=== PATIENT | female | born 1970 | race Caucasian/White ===

== ENCOUNTER → 2017-08-06 | Outpatient (CLI) | payer BC | END | disposition home or self-care (01) | LOC: CDC 15:07 | DX: Z01.810 Encounter for preprocedural cardiovascular examination (principal) | CPT/HCPCS: 93000 ==

== ENCOUNTER 2017-08-29 08:32 | Day surgery (SDC) | payer BC ==
[~2017-08-29] VITALS: Ht 162.6 cm; Wt 70.0 kg
[~2017-08-29 08:32] MED LIST: AIRBORNE KIDS1 EACH PO; CLARITIN,ALAVAR10 MG PO; IBUPROFEN200 M1 PO; IMITREX100 MG PO; MUCINEX D ER T1 EAC1 PO; TYLENOL EXTRA500 MG PO
[2017-08-29 09:02] VITALS: BP 116/73
[2017-08-29] MEDS ORDERED: IBUPROFEN800 MG PO (11:46)
[2017-08-29 12:40] VITALS: BP 118/64
[2017-08-29 13:40] VITALS: BP 121/77
== END 2017-08-29 13:45 | disposition home or self-care (01) ==
LOC: SDC 08:32
DX: N84.0 Polyp of corpus uteri (principal); N92.0 Excessive and frequent menstruation with regular cycle
CPT/HCPCS: 88305; J0690; J1100; J1885; J2250; J2405; J3010